=== PATIENT | female | born 1995 | race Caucasian/White ===

== ENCOUNTER 2016-08-10 10:36 | Emergency (ER) | payer SELFPAY ==
--- NOTE | 2016-08-15 08:22 | ER ---
ADMIT: 08/10/2016 RM/LOC: ER [facility] MR#: [id number] [address] [id number] [address] [place], [place] [id number] Emergency Room Report SEX: F AGE: 20 : 1995 DATE: 08/10/2016 HISTORY OF PRESENT ILLNESS: A 20-year-old female with 2 days' worth of abdominal pain, sharp crampy in the lower quadrants of her abdomen. See T- sheet for remainder of history and physical. A CT scan of the abdomen was negative. CBC was normal. The patient is being discharged with a diagnosis of abdominal pain. Encouraged to follow up with primary doctor this week. Lonnei Warner MD/ apolinar JOB #: [id number] CC: Fritz Mendoza MD, Attending Physician Kellie Knapp MD, Family Physician
== END 2016-08-10 16:50 | disposition home or self-care (01) ==
LOC: ER 10:36
DX: R10.31 Right lower quadrant pain (principal); R10.32 Left lower quadrant pain; Z98.890 Other specified postprocedural states